=== PATIENT | male | born 1955 | race Caucasian/White ===

== ENCOUNTER → 2016-10-26 | Outpatient (CLI) | payer OTHER ==
[~2016-10-26] MED LIST: CLEOCIN HCL300 MG PO; FLORASTOR250 MG PO; LEVAQUIN500 MG PO; LIPITOR80 MG PO; MIRALAX17 GM PO; NICODERM CQ1 EAC1 TRANS; NORCO 5-325 TA1 EACH PO; PLAVIX75 MG PO; TENORMIN25 MG PO
[2016-10-26 13:44] LABS: BASOPHIL % 0.4 %; EOSINOPHIL % 0.1 %; HEMATOCRIT 48.6 % (37.0-53.0); HEMOGLOBIN 17.3 g/dL (11.0-16.0); IMMATURE GRANULOCYTE % 0.5 %; LYMPHOCYTE % 13.2 %; MCH 35.4 pg (27.0-34.0); MCHC 35.6 gm/dL (32.0-36.5); MCV 99.4 fl (83.0-98.0); MONOCYTE # 0.6 K/uL (0.0-1.0); MONOCYTE % 7.4 %; MPV 10.9 fl (9.4-12.4); NEUTROPHIL # (ANC) 5.8 K/uL (1.4-9.0); NEUTROPHIL % 78.4 %; NRBC % 0 /100WBC (0-0.00); PLATELET COUNT 140 K/uL (150-450); RBC 4.89 M/uL (3.50-5.50); RDW-CV 14.4 % (11.9-14.6); WBC 7.4 K/uL (4.0-11.0)
[2016-10-26 13:57] LABS: ALBUMIN 3.8 gm/dL (3.5-5.0); ALK PHOS 71 IU/L (33-138); ALT 25 IU/L (12-78); ANION GAP 14.7 (10.0-19.0); AST 34 IU/L (10-40); BLOOD UREA NITROGEN 13 mg/dL (6-24); CALCIUM 8.8 mg/dL (8.5-10.5); CHLORIDE 104 mMol/L (96-110); CO2 26 mMol/L (22-32); CREATININE 0.9 mg/dL (0.6-1.3); ESTIMATED GFR (MDRD EQUATION) > 60; POTASSIUM 4.7 mMol/L (3.7-5.1); SODIUM 140 mMol/L (135-145); TOTAL BILIRUBIN 0.8 mg/dL (0.0-1.5); TOTAL PROTEIN 7.2 g/dL (6.0-8.4)
== END | disposition disaster alternative care site (69) ==
LOC: LNHI 13:21
PROVIDERS: Surgery Vascular Surgery
DX: I70.219 Atherosclerosis of native arteries of extremities with intermittent claudication, unspecified extremity (principal); I73.9 Peripheral vascular disease, unspecified

== ENCOUNTER 2016-11-03 06:44 | Outpatient (CLI) | payer OTHER ==
[~2016-11-03] VITALS: Ht 188 cm; Wt 59.6 kg
--- NOTE | ~2016-11-03 | ENPV ---
Vascular Lower Extremity Vein Mapping and Lower Extremities DVT Study Procedure Demographics Patient Name KAR MARTINEZ Date of Study 11/03/2016 J Patient Number [id number] Gender Male Date of 1955 Age 61 Visit Number [id number] Height 74 Accession Number [id number] Weight 131.4 Referring Norman Helton MD Interpreting Norman Helton MD Physician Physician Physician Ordering Physician Mixer [employer] Product Tester Fran Alonzo, RVT Conclusions Summary No evidence of deep vein thrombosis in bilateral lower extremities. Chronic occlusive superficial thrombus is noted throughout the entire right greater saphenous vein from the saphenous vein junction to the distal calf. The left greater saphenous vein is patent from the saphenous vein junction to the distal thigh with visible intimal thickening present. Chronic occlusive superficial thrombus is noted in the left greater saphenous vein from the proximal to distal calf. Procedure Type of Study: Veins:Lower Extremity Vein Mapping, Vein Mapping, Lower Extremities DVT Study, Venous Duplex Lower Extremity Bilateral. Indications for Study:Pre-op for arterial harvesting. Additional Indications:Pre-op vein map for arterial bypass graft lower extremities Appropriate Use Criteria:8 Allergies - No known allergies. Patient Status:Routine. Study Location:Inpatient Portable. Technical Quality:Adequate visualization. Risk Factors - The patient's risk factor(s) include: chronic lung disease and arterial hypertension. - The patient has a current/recent (within 1 year) tobacco history. - The patient's last creatinine was 0.9 mg/dl. Velocities are measured in cm/s ; Diameters are measured in cm Right Lower Extremities DVT Study Measurements Right 2D and Doppler Measurements + + + + +------+------+ + !Location !Visualized!Compressibility!Thrombosis!Signal!Reflux!Reflux ! ! ! ! ! ! ! !(sec) ! + + + + +------+------+ + !GSV Thigh !Yes !No !Chronic !Absent! ! ! + + + + +------+------+ + !Common !Yes !Yes !None !Phasic!No ! ! !Femoral ! ! ! ! ! ! ! + + + + +------+------+ + !Prox !Yes !Yes !None !Phasic!No ! ! !Femoral ! ! ! ! ! ! ! + + + + +------+------+ + !Mid Femoral!Yes !Yes !None !Phasic!No ! ! + + + + +------+------+ + !Dist !Yes !Yes !None !Phasic!No ! ! !Femoral ! ! ! ! ! ! ! + + + + +------+------+ + !Popliteal !Yes !Yes !None !Phasic!No ! ! + + + + +------+------+ + !Gastroc !Yes !Yes ! ! ! ! ! + + + + +------+------+ + !PTV !Yes !Yes ! ! ! ! ! + + + + +------+------+ + !Peroneal !Yes !Yes ! ! ! ! ! + + + + +------+------+ + Left Lower Extremities DVT Study Measurements Left 2D and Doppler Measurements + + + + +------+------+ + !Location !Visualized!Compressibility!Thrombosis!Signal!Reflux!Reflux ! ! ! ! ! ! ! !(sec) ! + + + + +------+------+ + !GSV Thigh !Yes !Yes !None !Phasic!No ! ! + + + + +------+------+ + !Common !Yes !Yes !None !Phasic!No ! ! !Femoral ! ! ! ! ! ! ! + + + + +------+------+ + !Prox !Yes !Yes !None !Phasic!No ! ! !Femoral ! ! ! ! ! ! ! + + + + +------+------+ + !Mid Femoral!Yes !Yes !None !Phasic!No ! ! + + + + +------+------+ + !Dist !Yes !Yes !None !Phasic!No ! ! !Femoral ! ! ! ! ! ! ! + + + + +------+------+ + !Popliteal !Yes !Yes !None !Phasic!No ! ! + + + + +------+------+ + !Gastroc !Yes !Yes ! ! ! ! ! + + + + +------+------+ + !PTV !Yes !Yes ! ! ! ! ! + + + + +------+------+ + !Peroneal !Yes !Yes ! ! ! ! ! + + + + +------+------+ + Velocities are measured in cm/s ; Diameters are measured in cm + ++--------++--------+ !Superficial - Great Saphenous Vein !!Right !!Left ! + ++--------++--------+ !Location !!Diameter!!Diameter! + ++--------++--------+ !Sapheno Femoral Junction !! !!0.2 ! + ++--------++--------+ !GSV High Thigh !! !!0.2 ! + ++--------++--------+ !GSV Mid Thigh !! !!0.19 ! + ++--------++--------+ !GSV Low Thigh !! !!0.13 ! + ++--------++--------+ !GSV Knee !! !!0.16 ! + ++--------++--------+ - Number of vein branches on the left side:1 below knee. Signature dtt: KIN KEY dthoward: 11/03/16 1050 Physician Self Edit
--- NOTE | ~2016-11-03 | OR ---
PATIENT'S NAME: KAR MARTINEZ [facility] AGE: 61 Y [address] ROOM: [address] [address] LOCATION: GPCU ADMIT DATE: 11/03/2016 OR/Procedure Report DISCHARGE DATE: 11/03/2016 FAMILY PHYSICIAN: Jimmie Long ATTENDING PHYSICIAN: Danie Austin SURGEON: Danie Austin MD TILE PROFESSIONAL: DATE OF PROCEDURE: 11/03/2016 PREOPERATIVE DIAGNOSIS: Severe life limiting claudication, bilateral lower extremity. POSTOPERATIVE DIAGNOSIS: Severe life limiting claudication, bilateral lower extremity. PROCEDURE: Aortogram with bilateral lower extremity runoff. PUTTY PATCHER: Kika Rodriguez MD ANESTHESIA: MAC, local. ESTIMATED BLOOD LOSS: 10 mL. OPERATIVE FINDINGS: Bilateral SFA proximal occlusions, unable to recannulate. The patient will require bilateral bypasses. DESCRIPTION OF PROCEDURE: The patient was brought to the catholic priest, placed supine on the catholic priest table, prepped and draped in a sterile manner. Preoperative time-out was performed. We used ultrasound guidance to gain access via the right common femoral artery. We infiltrated 1% lidocaine, then used a micropuncture kit, exchanged using Seldinger technique for a 5-Armenian short sheath. We then went up and over the aorta with 0.035 Glidewire as well as Omni Flush catheter. We then proceeded to perform aortogram, which showed patent common external and internal iliac arteries. We then went up over the aortic bifurcation. We parked our catheter in the common femoral on the left and performed a series of angiograms in the left lower extremity. It showed a SFA occlusion proximally reconstitution above the knee popliteal within normal vessel runoff below. We attempted to use a TrailBlazer catheter as well as 0.035 wire in order to traverse this lesion, but we were unsuccessful in doing so. We then removed our wire and performed an angiogram of the right lower extremity. This showed a SFA occlusion as well with reconstitution below the knee only with much fewer collateral vessels than the left leg, explained why his LATASHA on the right is 0.5 and one on the left is 0.6. The patient will need bilateral fem-pop bypasses. Sheath was removed. Pressure was held. The patient tolerated the procedure well and transferred to the recovery room and PATIENT'S NAME: KAR MARTINEZ [facility] AGE: 61 Y [address] ROOM: [address] [place], [place] [address] LOCATION: GPCU ADMIT DATE: 11/03/2016 OR/Procedure Report DISCHARGE DATE: 11/03/2016 FAMILY PHYSICIAN: Jimmie Long ATTENDING PHYSICIAN: Danie Austin home later that day. MD VAIBHAV CASTRO/modl /[id number] d: 11/03/162042 t: 11/04/16 1544, OPERATIVE SUMMARY
[~2016-11-03 06:44] MED LIST changes: -CLEOCIN HCL300 MG PO; -FLORASTOR250 MG PO; -LEVAQUIN500 MG PO; -LIPITOR80 MG PO; -MIRALAX17 GM PO; -NICODERM CQ1 EAC1 TRANS; -NORCO 5-325 TA1 EACH PO
[2016-11-03] MEDS ORDERED: LIPITOR80 MG PO (07:44)
== END 2016-11-03 13:45 | disposition disaster alternative care site (69) ==
LOC: GPCU 06:44 → GCAT 06:44 → GPOC 07:00 → GCAT 13:45 → GPOC 14:00
PROC: B41DYZZ Fluoroscopy of Aorta and Bilateral Lower Extremity Arteries using Other Contrast (ICD-10-PCS; principal; 2016-11-03)
DX: I73.9 Peripheral vascular disease, unspecified (principal)
CPT/HCPCS: C1769; C1887; J0690; J1644; J2001; J2250; J3010; J7030

== ENCOUNTER 2016-11-20 09:00 | Inpatient (IN) | payer OTHER ==
[~2016-11-20] VITALS: Ht 188 cm; Wt 61.8 kg
--- NOTE | ~2016-11-20 | DS ---
PATIENT'S NAME: KAR MARTINEZ [facility] AGE: 61 Y [address] ROOM: [address] [place] [id number] LOCATION: GPCU ADMIT DATE: 11/25/2016 Discharge Summary DISCHARGE DATE: 11/28/2016 FAMILY PHYSICIAN: Jimmie Long ATTENDING PHYSICIAN: Leon Fall FINAL DIAGNOSIS: Life-limiting claudication and critical limb ischemia. SECONDARY DIAGNOSES: 1. Tobacco dependence. 2. Essential hypertension. PROCEDURES: Right femoral-popliteal bypass with 7 mm PTFE graft. CONSULTATIONS: Hospitalist for medical management. HOSPITAL COURSE: This is a 61-year-old, male, admitted to [facility] on 11/26/2016 after right lower extremity femoral-popliteal bypass with graft. The patient with severe short distance claudication and bilateral occlusion of SFAs. After angiogram on 11/03/2016, it was determined that he would require a femoral popliteal bypass. The patient without adequate size vein to use for bypass. See history and physical for full patient details. At the end of the case, the patient was found to have good Doppler signals as well as a palpable dorsalis pedis. The patient tolerated the procedure well and after recovery, was admitted to progressive care unit for monitoring on telemetry. Vitals, labs, surgical site, pain management, medication administration, and nursing assistance. On postop day 1, hospitalists were consulted for medical management. He remained on bedrest until 6:00 a.m. the next day, his diet was advanced as tolerated. IV fluids were continued for 24 hours and Ancef IV was continued for 24 hours as well. The patient did have a prolonged time of sinus tachycardia postoperatively and he was giving 500 mL normal saline bolus over 1 hour. On postop day #1, the patient was found to have pain in his right leg radiating from his groin down his thigh with movement. He denies any pain at rest. His Moe was discontinued and his saline fluids were locked. He was able to get up with Physical Therapy. On postop day 2 and 3, the patient worked on increasing his ambulation in the halls. His pain was more controlled on postop day 3, and his incisions were found to be clean, dry, and intact without hematoma or infection. He is found to have a strong dorsalis pedis pulse. Hospitalists as well as vascular team determined that the patient was found in stable condition to be discharged home. DISCHARGE ORDERS: The patient is to be discharged home on a regular diet. He is to avoid heavy lifting for 2 weeks. He is to come to the [facility] on 12/02/2016, for removal of the Prevena VAC on PATIENT'S NAME: KAR MARTINEZ [facility] AGE: 61 Y [address] ROOM: [id number] [place] [id number] LOCATION: GPCU ADMIT DATE: 11/25/2016 Discharge Summary DISCHARGE DATE: 11/28/2016 FAMILY PHYSICIAN: Jimmie Long ATTENDING PHYSICIAN: Leon Fall his right groin. He is then to follow up on 12/08/2016 with Allison Justin APRN, and [facility]. He is to report any signs or symptoms of infection including redness, swelling, fevers, chills, or drainage. The patient is encouraged to quit smoking for bypass preservation. DISCHARGE MEDICATIONS: 1. Atenolol 25 mg p.o. twice daily. 2. Plavix 75 mg p.o. daily. 3. Lipitor 80 mg p.o. daily. 4. Nicotine patch 21 mg transdermally every day. 5. Sterling 5/325 two tabs every 4 hours as needed for pain. DISPOSITION: The patient is to be discharged home in stable condition. He is to follow discharge orders as prescribed. Education about discharge including incisional care, medications, prescriptions, diet, activity, and followup appointments given to the patient. The patient verbalized understanding of the plan and had no further questions or concerns. He is to follow discharge orders as prescribed. ALLISON JUSTIN APRN FOR KIN KEY MD TO/asher /[id number] d: 12/02/16 0127 t: 12/03/16 0949, DISCHARGE SUMMARY
--- NOTE | ~2016-11-20 | OR ---
PATIENT'S NAME: KAR MARTINEZ [facility] AGE: 61 Y [address] ROOM: [address] [address] LOCATION: GPCU ADMIT DATE: 11/25/2016 OR/Procedure Report DISCHARGE DATE: FAMILY PHYSICIAN: Jimmie Long ATTENDING PHYSICIAN: PARISA DO SURGEON: Danie Austin MD TRIM SETTER: DATE OF PROCEDURE: 11/25/2016 PREOPERATIVE DIAGNOSIS: Right lower extremity critical ischemia. POSTOPERATIVE DIAGNOSIS: Right lower extremity critical ischemia. PROCEDURE PERFORMED: Right femoral-popliteal bypass with a 7 mm PTFE. ASSISTANT INFANT TEACHER: RADHIKA Austin. ANESTHESIA: General. ESTIMATED BLOOD LOSS: 150 mL. FINDINGS: Palpable DP pulse at the end of case. DESCRIPTION OF PROCEDURE: The patient was brought to the operating room, placed supine on operating table, placed under general anesthesia, prepped and draped in a sterile manner. Preoperative time-out was performed. The patient received preoperative antibiotics. We made a transverse incision in the right groin dissected down the fascia, incised the fascia in a longitudinal manner. Dissected out the common femoral artery. We then dissected out the popliteal artery using standard medial approach via the calf. We then tunneled a 7 mm Terry PTFE graft from one incision to the next. We then gave 5000 units of heparin. We clamped proximally and distally in the popliteal artery. We made a 7 mm arteriotomy using an 11 blade as well as Marquez scissors. We made a standard 6-0 Prolene anastomosis from the graft to the artery. We removed the clamps. There was good backbleeding into the graft. We then clamped proximally and distally on the femoral artery and then create a morgan out of the graft and then did a standard 6-0 running Prolene anastomosis using 2 6-0 Prolene's. We removed the clamps. There was excellent flow in the graft. There was a palpable DP pulse. Heparin was reversed with the use of protamine. Thrombin and Surgicel were used locally on the wound for hemostasis. Deep layers were closed with 2-0 and 3-0 Vicryl. The skin was closed with running 4-0 Monocryl. The patient tolerated the procedure well and was transferred to recovery room and back to the floor. PATIENT'S NAME: KAR MARTINEZ [facility] AGE: 61 Y [address] ROOM: [address] [place], [place] [address] [facility] ADMIT DATE: 11/25/2016 OR/Procedure Report DISCHARGE DATE: FAMILY PHYSICIAN: Jimmie Long ATTENDING PHYSICIAN: PARISA DO MD VAIBHAV CASTRO/asher /[id number] d: 11/25/161756 t: 12/06/16 1626, OPERATIVE SUMMARY
[~2016-11-20 09:00] MED LIST changes: +LIPITOR80 MG PO
[2016-11-25 07:59] LABS: BASOPHIL % 0.8 %; EOSINOPHIL # 0.1 K/uL (0.0-0.5); EOSINOPHIL % 2.5 %; HEMATOCRIT 46.8 % (37.0-53.0); HEMOGLOBIN 16.3 g/dL (11.0-16.0); IMMATURE GRANULOCYTE % 0.4 %; LYMPHOCYTE # 1.2 K/uL (0.8-4.0); LYMPHOCYTE % 24.4 %; MCH 34.6 pg (27.0-34.0); MCHC 34.8 gm/dL (32.0-36.5); MCV 99.4 fl (83.0-98.0); MONOCYTE # 0.5 K/uL (0.0-1.0); MONOCYTE % 9.7 %; MPV 10.1 fl (9.4-12.4); NEUTROPHIL % 62.2 %; NRBC % 0 /100WBC (0-0.00); RBC 4.71 M/uL (3.50-5.50); RDW-CV 13.8 % (11.9-14.6); WBC 4.9 K/uL (4.0-11.0)
[2016-11-25 08:01] LABS: PLATELET COUNT 170 K/uL (150-450)
[2016-11-25 08:19] LABS: ALBUMIN 3.7 gm/dL (3.5-5.0); ALK PHOS 76 IU/L (33-138); ALT 25 IU/L (12-78); AST 32 IU/L (10-40); BLOOD UREA NITROGEN 7 mg/dL (6-24); CALCIUM 8.8 mg/dL (8.5-10.5); CHLORIDE 106 mMol/L (96-110); CO2 28 mMol/L (22-32); CREATININE 0.9 mg/dL (0.6-1.3); SODIUM 141 mMol/L (135-145); TOTAL PROTEIN 7.4 g/dL (6.0-8.4)
[2016-11-25 16:44] LABS: ANION GAP 11.9 (10.0-19.0); BLOOD UREA NITROGEN 7 mg/dL (6-24); CHLORIDE 107 mMol/L (96-110); CO2 25 mMol/L (22-32); CREATININE 0.9 mg/dL (0.6-1.3); POTASSIUM 3.9 mMol/L (3.7-5.1); SODIUM 140 mMol/L (135-145)
[2016-11-26 06:14] LABS: BASOPHIL % 0.1 %; EOSINOPHIL % 0.1 %; HEMOGLOBIN 11.8 g/dL (11.0-16.0); IMMATURE GRANULOCYTE % 0.4 %; LYMPHOCYTE # 1.2 K/uL (0.8-4.0); LYMPHOCYTE % 15.2 %; MCHC 34.2 gm/dL (32.0-36.5); MCV 100.9 fl (83.0-98.0); MONOCYTE # 0.7 K/uL (0.0-1.0); MONOCYTE % 8.6 %; MPV 10.7 fl (9.4-12.4); NEUTROPHIL % 75.6 %; NRBC % 0 /100WBC (0-0.00); PLATELET COUNT 143 K/uL (150-450); RDW-CV 13.8 % (11.9-14.6); WBC 7.9 K/uL (4.0-11.0)
[2016-11-26 06:16] LABS: HEMATOCRIT 34.5 % (37.0-53.0); MCH 34.5 pg (27.0-34.0); RBC 3.42 M/uL (3.50-5.50)
[2016-11-27 05:56] LABS: BASOPHIL % 0.4 %; EOSINOPHIL # 0.2 K/uL (0.0-0.5); EOSINOPHIL % 2.5 %; HEMATOCRIT 34.8 % (37.0-53.0); HEMOGLOBIN 12.1 g/dL (11.0-16.0); IMMATURE GRANULOCYTE % 0.3 %; LYMPHOCYTE # 1.6 K/uL (0.8-4.0); LYMPHOCYTE % 23.7 %; MCH 35.2 pg (27.0-34.0); MCHC 34.8 gm/dL (32.0-36.5); MCV 101.2 fl (83.0-98.0); MONOCYTE # 0.5 K/uL (0.0-1.0); MONOCYTE % 6.7 %; MPV 10.8 fl (9.4-12.4); NEUTROPHIL # (ANC) 4.4 K/uL (1.4-9.0); NEUTROPHIL % 66.4 %; NRBC % 0 /100WBC (0-0.00); PLATELET COUNT 124 K/uL (150-450); RBC 3.44 M/uL (3.50-5.50); RDW-CV 13.9 % (11.9-14.6); WBC 6.7 K/uL (4.0-11.0)
[2016-11-27 11:41] LABS: ANION GAP 8.8 (10.0-19.0); BLOOD UREA NITROGEN 10 mg/dL (6-24); CALCIUM 8.3 mg/dL (8.5-10.5); CHLORIDE 105 mMol/L (96-110); CO2 29 mMol/L (22-32); CREATININE 0.8 mg/dL (0.6-1.3); POTASSIUM 3.8 mMol/L (3.7-5.1); SODIUM 139 mMol/L (135-145)
[2016-11-28 04:57] LABS: BASOPHIL % 0.2 %; EOSINOPHIL # 0.1 K/uL (0.0-0.5); EOSINOPHIL % 1.7 %; HEMATOCRIT 33.7 % (37.0-53.0); HEMOGLOBIN 11.9 g/dL (11.0-16.0); IMMATURE GRANULOCYTE % 0.5 %; LYMPHOCYTE # 1.3 K/uL (0.8-4.0); LYMPHOCYTE % 16.2 %; MCH 34.9 pg (27.0-34.0); MCHC 35.3 gm/dL (32.0-36.5); MCV 98.8 fl (83.0-98.0); MONOCYTE # 0.7 K/uL (0.0-1.0); MPV 11.1 fl (9.4-12.4); NEUTROPHIL # (ANC) 6.1 K/uL (1.4-9.0); NEUTROPHIL % 73.4 %; NRBC % 0 /100WBC (0-0.00); PLATELET COUNT 127 K/uL (150-450); RBC 3.41 M/uL (3.50-5.50); RDW-CV 13.5 % (11.9-14.6); WBC 8.3 K/uL (4.0-11.0)
[2016-11-28 05:10] LABS: ANION GAP 9.7 (10.0-19.0); BLOOD UREA NITROGEN 10 mg/dL (6-24); CALCIUM 8.2 mg/dL (8.5-10.5); CHLORIDE 104 mMol/L (96-110); CO2 27 mMol/L (22-32); CREATININE 0.7 mg/dL (0.6-1.3); POTASSIUM 3.7 mMol/L (3.7-5.1); SODIUM 137 mMol/L (135-145)
[2016-11-28] MEDS ORDERED: NICODERM CQ1 EAC1 TRANS (11:19)
[2016-11-28] MEDS ORDERED: NORCO 5-325 TA1 EACH PO (11:20)
== END 2016-11-28 14:35 | disposition disaster alternative care site (69) | DRG 254 ==
LOC: GPCU 11-25 07:21
PROVIDERS: Internal Medicine; ADMIT Surgery Vascular Surgery
PROC: 041K0JL Bypass Right Femoral Artery to Popliteal Artery with Synthetic Substitute, Open Approach (ICD-10-PCS; principal; 2016-11-25)
DX: I70.211 Atherosclerosis of native arteries of extremities with intermittent claudication, right leg (principal); I10 Essential (primary) hypertension; F17.200 Nicotine dependence, unspecified, uncomplicated; I73.9 Peripheral vascular disease, unspecified
CPT/HCPCS: A9270; J0690; J1100; J1170; J1644; J1650; J1885; J2001; J2250; J2270; J2720; J3010; J3480; J7030; L8670

== ENCOUNTER 2016-12-17 15:00 | Inpatient (IN) | payer OTHER ==
[~2016-12-17] VITALS: Ht 188 cm; Wt 62.5 kg
--- NOTE | ~2016-12-17 | DS ---
PATIENT'S NAME: KAR MARTINEZ [facility] AGE: 61 Y [address] ROOM: [address] [address] LOCATION: [facility] [facility] ADMIT DATE: 12/22/2016 Discharge Summary DISCHARGE DATE: 12/25/2016 FAMILY PHYSICIAN: Jimmie Long ATTENDING PHYSICIAN: Danie Austin FINAL DIAGNOSIS: Wound dehiscence to right leg. SECONDARY DIAGNOSES: 1. Peripheral arterial disease. 2. Essential hypertension. 3. Mild protein-calorie malnutrition. 4. Chronic ETOH use. 5. Opioid induced constipation. PROCEDURES: Debridement of right lower extremity femoral-popliteal wound with VAC placement. CONSULTATIONS: Hospitalist for medical management. HOSPITAL COURSE: This is a 61-year-old male admitted to [facility] on 12/22/2016 for debridement of right lower extremity surgical wound with VAC placement. The patient with a history of peripheral arterial disease with femoral-popliteal bypass with graft on 11/25/2016. On initial postoperative visit, the patient's wound found to have a superficial opening, which was treated with Levaquin 500 mg p.o. x7 days, the patient did apply Betadine, there was no graft exposure. The patient continued to have drainage postoperatively, which required surgical intervention. See history and physical for full patient details. During the procedure, the patient was found to have small pocket of clear fluid, there is no evidence of infection or exposed graft during surgical evaluation. Wound cultures were obtained from surgical fluid. Hospital VAC was applied in the operating room. The patient tolerated the procedure well and after recovery was admitted to Med/Surg for monitoring of vitals, labs, surgical site, pain management, medication administration, and nursing assistance. Hospitalists were consulted for medication management. His diet was advanced as tolerated and he was continued on p.o. Levaquin and started on p.o. Bactrim DS for possible infection. The patient's pain was well-controlled. On postop day #1, Wound Care was consulted for wound VAC change and applying for home VAC placement. No bacteria were seen on postop day #1 culture. The patient's plan included to be discharged home on wound VAC when it was approved by insurance. On postop day #2, we continued to wait on home VAC approval, wound cultures began to show moderate growth of gram-positive bacteria with some cultures pending. The patient denied any fevers or chills. There is no erythema to the leg. On postop day #3, wound cultures returned, and were positive for Staphylococcus PATIENT'S NAME: KAR MARTINEZ [facility] AGE: 61 Y [address] ROOM: [address] [address] LOCATION: [facility] [facility] ADMIT DATE: 12/22/2016 Discharge Summary DISCHARGE DATE: 12/25/2016 FAMILY PHYSICIAN: Jimmie Long ATTENDING PHYSICIAN: Danie Austin epidermidis and Enterococcus faecalis. Subsequently, the patient's Levaquin and Bactrim were discontinued and the patient was started on clindamycin 600 mg p.o. t.i.d. The patient noted to have serosanguineous drainage, no exposure of graft on wound evaluation, and no significant erythema. Wound Care gave report to [facility] and home VAC was approved and applied. The patient was found in a stable condition to be discharged home. He is to have routine VAC changes 2 times per week. LABORATORY DATA: White blood cell count trending 7.1, 6.6, 6.5, 4.9. DISCHARGE ORDERS: The patient is to be discharged on his previous diet. Activity is as tolerated. He is to follow up in 3 days to have a CBC and BMP drawn at [facility]. He is to follow up with Allison Justin APRN, in [facility] on 01/12/2017. His 1st appointment with [facility] is 12/29/2016 to begin routine VAC changes. He is to follow up with Dr. Teran as desired. He is to report any signs or symptoms of infection including redness, swelling, fevers, chills, or drainage. DISCHARGE MEDICATIONS: 1. Atenolol 25 mg p.o. twice daily. 2. Plavix 75 mg p.o. daily. 3. Lipitor 80 mg p.o. daily. 4. Nicotine patch 21 mg transdermally everyday. 5. Delmar 5/325 two tabs every 4 hours as needed for pain. 6. MiraLAX 17 g p.o. daily. 7. Florastor 25 mg p.o. twice daily while on antibiotics. 8. Clindamycin 600 mg p.o. 3 times daily. DISPOSITION: The patient is discharged home in a stable condition. He is to follow discharge orders as prescribed. Education about discharge including wound VAC, medications, prescriptions, diet, activity, and followup appointments given to the patient. The patient verbalized understanding of the plan and had no further questions or concerns. He is to follow discharge orders as prescribed. ALLISON JUSTIN APRN FOR DANIE AUSTIN MD TO/edgarl /[id number] d: 12/30/16 0149 t: 12/30/16 0856, DISCHARGE SUMMARY
--- NOTE | ~2016-12-17 | OR ---
PATIENT'S NAME: KAR MARTINEZ [facility] AGE: 61 Y [address] ROOM: [place] [address] LOCATION: [facility] ADMIT DATE: 12/22/2016 OR/Procedure Report DISCHARGE DATE: FAMILY PHYSICIAN: Jimmie Long ATTENDING PHYSICIAN: DANIE KEY SURGEON: Danie Key MD TECHNICAL SUPPORT ASSISTANT: DATE OF PROCEDURE: 12/22/2016 PREOPERATIVE DIAGNOSIS: Right lower extremity wound dehiscence. POSTOPERATIVE DIAGNOSIS: Right lower extremity wound dehiscence. PROCEDURE: Debridement of right lower extremity femoral-popliteal wound with VAC placement. CROSSTIE INSPECTOR: RADHIKA Austin. ANESTHESIA: General. ESTIMATED BLOOD LOSS: 5 mL. OPERATIVE FINDINGS: Small pocket of clear fluid. No evidence of infection. No exposure of graft. DESCRIPTION OF PROCEDURE: The patient was brought to the operating room, placed supine on the operating table, prepped and draped in a sterile manner. Preoperative time-out was performed. The patient received preoperative antibiotics. The patient had a small 1 cm dehiscence of his right femoral- popliteal wound in the calf. We sharply debrided the edges to clean healthy bleeding edges. We then evacuated a small amount of clear fluid. There appeared to be good significant granulation tissue beneath this opening with no exposure of the graft in any direction. We then copiously irrigated with antibiotic solution. We then packed it with a gauze and then placed a wound VAC on. The patient tolerated the procedure well and transferred to the recovery room and up to the floor. MD VAIBHAV CASTRO/edgarl PATIENT'S NAME: KAR MARTINEZ [facility] AGE: 61 Y [address] ROOM: [place] [address] LOCATION: [facility] ADMIT DATE: 12/22/2016 OR/Procedure Report DISCHARGE DATE: FAMILY PHYSICIAN: Jimmie Long ATTENDING PHYSICIAN: DANIE KEY /[id number] d: 12/22/165 t: 12/24/16 1742, OPERATIVE SUMMARY
[~2016-12-17 15:00] MED LIST changes: +NICODERM CQ1 EAC1 TRANS; +NORCO 5-325 TA1 EACH PO
[2016-12-17] MEDS ORDERED: LEVAQUIN500 MG PO (15:37)
[2016-12-22 06:54] LABS: BASOPHIL % 0.3 %; EOSINOPHIL # 0.1 K/uL (0.0-0.5); EOSINOPHIL % 1.7 %; HEMATOCRIT 35.3 % (37.0-53.0); HEMOGLOBIN 12.3 g/dL (11.0-16.0); IMMATURE GRANULOCYTE % 0.4 %; LYMPHOCYTE # 0.8 K/uL (0.8-4.0); LYMPHOCYTE % 11.8 %; MCH 34.9 pg (27.0-34.0); MCHC 34.8 gm/dL (32.0-36.5); MCV 100.3 fl (83.0-98.0); MONOCYTE # 0.6 K/uL (0.0-1.0); MONOCYTE % 8.4 %; NEUTROPHIL # (ANC) 5.5 K/uL (1.4-9.0); NEUTROPHIL % 77.4 %; NRBC % 0 /100WBC (0-0.00); RBC 3.52 M/uL (3.50-5.50); RDW-CV 14.6 % (11.9-14.6); WBC 7.1 K/uL (4.0-11.0)
[2016-12-22 06:59] LABS: PLATELET COUNT 177 K/uL (150-450)
[2016-12-22 07:14] LABS: ALBUMIN 3.2 gm/dL (3.5-5.0); ALK PHOS 71 IU/L (33-138); ALT 20 IU/L (12-78); ANION GAP 10.2 (10.0-19.0); AST 30 IU/L (10-40); BLOOD UREA NITROGEN 12 mg/dL (6-24); CALCIUM 8.4 mg/dL (8.5-10.5); CHLORIDE 111 mMol/L (96-110); CO2 25 mMol/L (22-32); CREATININE 0.8 mg/dL (0.6-1.3); POTASSIUM 4.2 mMol/L (3.7-5.1); SODIUM 142 mMol/L (135-145); TOTAL BILIRUBIN 0.9 mg/dL (0.0-1.5); TOTAL PROTEIN 6.5 g/dL (6.0-8.4)
[2016-12-23 06:21] LABS: BASOPHIL % 0.2 %; EOSINOPHIL % 0.2 %; HEMATOCRIT 32.5 % (37.0-53.0); HEMOGLOBIN 11.3 g/dL (11.0-16.0); IMMATURE GRANULOCYTE % 0.6 %; LYMPHOCYTE % 14.6 %; MCH 34.7 pg (27.0-34.0); MCHC 34.8 gm/dL (32.0-36.5); MCV 99.7 fl (83.0-98.0); MONOCYTE # 0.7 K/uL (0.0-1.0); MONOCYTE % 10.8 %; NEUTROPHIL # (ANC) 4.8 K/uL (1.4-9.0); NEUTROPHIL % 73.6 %; NRBC % 0 /100WBC (0-0.00); PLATELET COUNT 169 K/uL (150-450); RBC 3.26 M/uL (3.50-5.50); RDW-CV 14.1 % (11.9-14.6); WBC 6.6 K/uL (4.0-11.0)
[2016-12-23 06:36] LABS: ANION GAP 11.4 (10.0-19.0); BLOOD UREA NITROGEN 13 mg/dL (6-24); CALCIUM 8.3 mg/dL (8.5-10.5); CHLORIDE 107 mMol/L (96-110); CO2 25 mMol/L (22-32); CREATININE 0.8 mg/dL (0.6-1.3); POTASSIUM 4.4 mMol/L (3.7-5.1); SODIUM 139 mMol/L (135-145)
[2016-12-24 04:20] LABS: BASOPHIL % 0.6 %; EOSINOPHIL # 0.1 K/uL (0.0-0.5); EOSINOPHIL % 1.4 %; HEMATOCRIT 33.3 % (37.0-53.0); HEMOGLOBIN 11.4 g/dL (11.0-16.0); IMMATURE GRANULOCYTE % 0.6 %; LYMPHOCYTE # 1.8 K/uL (0.8-4.0); MCHC 34.2 gm/dL (32.0-36.5); MCV 99.4 fl (83.0-98.0); MONOCYTE # 0.5 K/uL (0.0-1.0); MONOCYTE % 6.9 %; MPV 9.9 fl (9.4-12.4); NEUTROPHIL # (ANC) 4.1 K/uL (1.4-9.0); NEUTROPHIL % 62.5 %; NRBC % 0 /100WBC (0-0.00); PLATELET COUNT 156 K/uL (150-450); RBC 3.35 M/uL (3.50-5.50); RDW-CV 14.4 % (11.9-14.6); WBC 6.5 K/uL (4.0-11.0)
[2016-12-25 05:22] LABS: BASOPHIL % 0.4 %; EOSINOPHIL # 0.2 K/uL (0.0-0.5); EOSINOPHIL % 3.3 %; HEMATOCRIT 33.6 % (37.0-53.0); HEMOGLOBIN 11.7 g/dL (11.0-16.0); IMMATURE GRANULOCYTE % 0.4 %; LYMPHOCYTE # 1.5 K/uL (0.8-4.0); MCH 34.8 pg (27.0-34.0); MCHC 34.8 gm/dL (32.0-36.5); MONOCYTE # 0.5 K/uL (0.0-1.0); MONOCYTE % 10.4 %; MPV 10.1 fl (9.4-12.4); NEUTROPHIL # (ANC) 2.7 K/uL (1.4-9.0); NEUTROPHIL % 54.5 %; NRBC % 0 /100WBC (0-0.00); PLATELET COUNT 162 K/uL (150-450); RBC 3.36 M/uL (3.50-5.50); RDW-CV 14.3 % (11.9-14.6); WBC 4.9 K/uL (4.0-11.0)
[2016-12-25] MEDS ORDERED: MIRALAX17 GM PO (13:24)
[2016-12-25] MEDS ORDERED: FLORASTOR250 MG PO (13:25)
[2016-12-25] MEDS ORDERED: NORCO 5-325 TA1 EACH PO (13:26)
[2016-12-25] MEDS ORDERED: CLEOCIN HCL300 MG PO (13:27)
== END 2016-12-25 16:07 | disposition disaster alternative care site (69) | DRG 902 ==
LOC: GPOC 15:00 → GSDC 12-22 05:30 → GPCU 12-22 05:38 → GMSU 12-22 05:38 → EDSTATUS 12-22 15:00 → GSDC 12-22 15:00 → GMSU 12-25 16:07
PROVIDERS: Nurse Practitioner Family; ADMIT Surgery Vascular Surgery
PROC: 0JBN0ZZ Excision of Right Lower Leg Subcutaneous Tissue and Fascia, Open Approach (ICD-10-PCS; principal; 2016-12-22)
DX: T81.31XA Disruption of external operation (surgical) wound, not elsewhere classified, initial encounter (principal); E44.1 Mild protein-calorie malnutrition; I10 Essential (primary) hypertension; Z68.1 Body mass index [BMI] 19.9 or less, adult; I73.9 Peripheral vascular disease, unspecified; Z79.891 Long term (current) use of opiate analgesic; K59.03 Drug induced constipation; T40.2X5A Adverse effect of other opioids, initial encounter; F10.20 Alcohol dependence, uncomplicated
CPT/HCPCS: A9270; J0690; J1100; J2001; J2270; J2405; J7030